=== PATIENT | female | born 1965 | race Caucasian/White ===

== ENCOUNTER 2019-06-19 13:20 | Emergency (ER) | payer OTHER ==
[~2019-06-19] VITALS: Ht 154.9 cm; Wt 65.9 kg
[~2019-06-19 13:20] MED LIST: IBUP-1542 PO; MECL12.574 PO
[2019-06-19 13:30] VITALS: Ht 154.9 cm; Wt 65.9 kg
[2019-06-19] MEDS ORDERED: ONDANSETRON 4 MG INJ IV STA (14:21)
[2019-06-19] MEDS ORDERED: DIPHENHYDRAMINE 50 MG INJ IV STA (14:21)
[2019-06-19] MEDS ORDERED: METOCLOPRAMIDE 10 MG INJ IV ONE (14:30)
[2019-06-19] MEDS ORDERED: SOD CHLORIDE 0.9% 1,000 ML IV STA (14:39)
--- NOTE | 2019-06-19 15:33 | ERD ---
ER Documentation Chief Complaint Chief Complaint headache, n/v, and dizzines x 3 days HPI 53-year-old female with complaint of headache, nausea vomiting, dizziness for the past 3 days. States that the headache came on gradually and she has had a history of headaches but she has not had a headache of this intensity before. denies any treatments. denies sudden onset, fever, neck stiffness, rash, headache getting worse with change in position, headache initiated by exertion, BRYANT worse in the morning, BRYANT waking up patient at night, new neurological deficits, numbness, weakness, vision problems, tenderness to palpation over temporal area, history of trauma, or possibility of CO2 poisoning. 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 ROS All systems reviewed and are negative except as per history of present illness. Medications Home Meds Active Scripts Meclizine Hcl* (Antivert*) 12.5 Mg Tab, 25 MG PO Q6H PRN for DIZZINESS, #20 TAB Prov:COY GOEL 06/19/19 Ibuprofen* (Motrin*) 600 Mg Tab, 600 MG PO Q6, #30 TAB Prov:ZACHARIAHSAMIACHRISTYCOY 06/19/19 Allergies Allergies: Coded Allergies: No Known Allergy (Unverified , 06/19/19) PMhx/Soc Medical and Surgical Hx: pt denies Medical Hx, pt denies Surgical Hx Hx Miscellaneous Medical Probl: Yes (TUBAL LIGATION) Hx Alcohol Use: No Hx Substance Use: No Hx Tobacco Use: No Smoking Status: Never smoker FmHx Family History: No diabetes, No coronary disease, No other Physical Exam Vitals Vital Signs Date Temp Pulse Resp B/P (MAP) Pulse Ox O2 O2 Flow FiO2 Time Delivery Rate 06/19/19 98.6 64 16 115/64 99 Room Air 16:18 (81) 06/19/19 98.3 72 18 130/65 99 13:30 (86) Physical Exam Const: No acute distress Head: Atraumatic Eyes: Normal Conjunctiva ENT: Normal External Ears, Nose and Mouth. Neck: Full range of motion. No meningismus. Resp: Clear to auscultation bilaterally Cardio: Regular rate and rhythm, no murmurs Abd: Soft, non tender, non distended. 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 Sensation: Normal sensation throughout Speech: Normal Cerebel: Normal coordination Normal gait Normal finger to nose DTR: 2+ and symmetric upper/lower extremities Result Diagram: 06/19/19 1434 06/19/19 1438 Results 24 hrs Laboratory Tests Test 06/19/19 14:34 06/19/19 14:38 White Blood Count 8.8 10^3/ul Red Blood Count 4.87 10^6/ul Hemoglobin 13.3 g/dl Hematocrit 42.6 % Mean Corpuscular Volume 87.5 fl Mean Corpuscular Hemoglobin 27.3 pg Mean Corpuscular Hemoglobin Concent 31.2 g/dl Red Cell Distribution Width 13.5 % Platelet Count 191 10^3/UL Mean Platelet Volume 11.4 fl Immature Granulocytes % 0.300 % Neutrophils % 77.0 % Lymphocytes % 15.4 % Monocytes % 6.2 % Eosinophils % 0.8 % Basophils % 0.3 % Nucleated Red Blood Cells % 0.0 /100WBC Immature Granulocytes # 0.030 10^3/ul Neutrophils # 6.8 10^3/ul Lymphocytes # 1.4 10^3/ul Monocytes # 0.5 10^3/ul Eosinophils # 0.1 10^3/ul Basophils # 0.0 10^3/ul Nucleated Red Blood Cells # 0.0 10^3/ul Sodium Level 143 mmol/L Potassium Level 3.8 mmol/L Chloride Level 106 mmol/L Carbon Dioxide Level 29 mmol/L Anion Gap 8 Blood Urea Nitrogen 15 mg/dl Creatinine 0.60 mg/dl Est Glomerular Filtrat Rate mL/min > 60 mL/min Glucose Level 129 mg/dl Calcium Level 9.5 mg/dl Total Bilirubin 1.2 mg/dl Direct Bilirubin 0.00 mg/dl Indirect Bilirubin 1.2 mg/dl Aspartate Amino Transf (AST/SGOT) 19 IU/L Alanine Aminotransferase (ALT/SGPT) 9 IU/L Alkaline Phosphatase 78 IU/L Total Protein 8.5 g/dl Albumin 4.4 g/dl Globulin 4.10 g/dl Albumin/Globulin Ratio 1.07 Current Medications Medications Dose Sig/Bridgett Start Time Status Last (Trade) Ordered Route PRN Stop Time Admin Dose Reason Admin 10 mg ONCE ONCE 06/19/19 DC 06/19/19 Metoclopramid IV 14:30 14:31 e HCl 06/19/19 14:31 (Reglan) Ondansetron 4 mg ONCE STAT 06/19/19 DC 06/19/19 HCl (Zofran IV 14:21 14:31 Inj) 06/19/19 14:23 25 mg ONCE STAT 06/19/19 DC 06/19/19 Diphenhydrami IV 14:21 14:34 ne HCl 06/19/19 14:23 (Benadryl) Sodium 1,000 ml @ Q1H STAT 06/19/19 DC 06/19/19 Chloride 1,000 mls/hr IV 14:39 14:43 06/19/19 15:38 Procedures/MDM DIAGNOSTIC IMAGING REPORT Patient: CAROL AVITIA : 1965 Age: 53 Sex: F MR #: [id number] DOS: 06/19/19 1420 Ordering MD: COY GOEL Location: [facility] Room/Bed: PROCEDURE: CT brain without contrast CLINICAL INDICATION: Headaches 3 days TECHNIQUE: CT of the brain without contrast was performed on a multidetector CT scanner, with multiplanar reformats. One or more of the following dose reduction techniques were used: Automated exposure control, adjustment in mA and / or kV according to patient size, use of iterative reconstructive technique. CTDIvol = 40 mGy; DLP = 634 mGy-cm. DICOM images are available. COMPARISON: None available FINDINGS: No acute intracranial hemorrhage is identified. No extra-axial fluid collection is seen. There is no mass effect. No midline shift is identified. The ventricles and sulci are within normal limits for size and configuration. A subtle punctate calcification is identified in the parasagittal left frontal region. Hamilton-white junctions are preserved. Calvarium and skull base are intact. Mastoid air cells and imaged paranasal sinuses grossly clear. IMPRESSION: 1. No evidence of acute intracranial pathology. 2. Punctate cerebral calcification which may be post infectious/inflammatory, sequela of neurocysticercosis. RPTAT: VV .Jeff Easley MD, MD Date Time Electronically viewed and signed by .Jeff Easley MD, MD on 06/19/2019 15:35 .O/ CC: COY GOEL [id number] MDM: Patient's neuro exam compared to her baseline was within normal limits. Patient was made to do head CT given the different nature of patient's headache as well as her age. Results within normal limits. Pain resolved with reglan and fluids. Given normal neuro exam and patient's history of headaches and I think a lumbar puncture here at this time. Patient emphatically denies sudden onset. Patient did not appear to be in acute distress. I have low suspicion for intracranial hemorrhage, elevated intracranial pressure, intracranial mass, aneurysm, meningitis, malignant hypertension, giant cell arteritis, carotid dissection, intracranial abscess, cerebral venous thrombosis, CO2 poisoning, or other emergent causes of headache based on patients history and exam At this time, patient is stable for discharge and outpatient management. I have instructed the patient to follow-up with his/her primary care physician in 1-2 days. I have discussed with the patient the possibility of needing to see a specialist for further workup and imaging studies if symptoms persist. I have instructed the patient to promptly return to the ER for any new or worsening symptoms including but not limited to increased pain, fever, nausea, vomiting, weakness or LOC. The patient and/or family expressed understanding of and agreement with this plan. All questions were answered. Home care instructions we re provided. [Communication with patient both during the exam and instructions for discharge were performed with using a rolling mill operator . Patient gave verbal confirmation to the practitioner, through the rolling mill operator, that they understood everything that was being said to them.] DISCLAIMER: Inadvertent spelling and grammatical errors are likely due to EHR/dictation software use and do not reflect on the overall quality of patient care. Also, please note that the electronic time recorded on this note does not necessarily reflect the actual time of the patient encounter. Departure Diagnosis: Primary Impression: Headache Condition: Stable COY GOEL Jun 19, 2019 15:33
[2019-06-19 16:18] VITALS: BP 115/64; PULSE 64; RESP 16
== END 2019-06-19 16:20 | disposition home or self-care (01) ==
LOC: FTE 13:20
DX: R51 Headache (principal)
CPT/HCPCS: 70450; 80053; 85025; 96374; 96375; J1200; J2405; J2765; J7030; Z7502